=== PATIENT | male | born 1995 | race Caucasian/White ===

== ENCOUNTER 2018-01-16 13:09 | Emergency (ER) | payer MEDICAID, SELFPAY ==
[2018-01-16 13:14] VITALS: BP 130/87; PULSE 122; RESP 22; TEMP 36.2; O2SAT 99
--- NOTE | 2018-01-16 13:35 | ED.GENADUL ---
Disposition Clinical Impression: Ear foreign body Disposition: HOME Condition: Good Instructions: Ear Foreign Body (ED) Additional Instructions: Please take Tylenol and Motrin for pain. If you notice any discharge from ear, worsening ear pain, please return immediately. If you notice any worsening of your symptoms, or any new symptoms such as vomiting, diarrhea, fever, chills, shortness of breath, chest pain, numbness, weakness, or fainting , please return immediately to the emergency department for reevaluation. Please follow up with your primary care provider as soon as possible for reassessment and reevaluation. As always, it was a pleasure participating in your medical care today. Medical Decision Making - Medical Decision Making This is a 22-year-old male who presents with pain in his right ear. He was under the assumption that it was water while swimming. Physical exam demonstrates evidence of an arthropod/insect in his right ear. Insect was removed with alligator clips, and subsequently flew away in the room. The patient had complete resolution of his symptoms after removal. No significant trauma was noted or signs of infection in the ear. With no evidence of infection no antibiotics are indicated at this time. The patient's pain was completely resolved after removal of the insect. Patient will be discharged home. We discussed red flags first return the patient understands. I have extensively reviewed the treatment plan and discharge instructions with the patient. I have addressed all patient concerns at this time. The patient was made aware of what symptoms to monitor for that would warrant a return to the emergency department. Discussed the plan with the patient, they demonstrate verbal understanding and agreement with our assessment and plan at this time. History of Present Illness - General Chief complaint: EarProblem Stated complaint: WATER IN EAR? Time Seen by Provider: 01/16/18 13:35 - History of Present Illness Initial comments: This is a 22-year-old male who presents with right ear pain he states that he was swimming yesterday when he noticed sudden pain in his right ear. He has been trying to flush it with water but has had no improvement. Feels like there is fluid inside of his ear. Nothing makes it better or worse. He denies any headache vision changes trauma numbness tingling or weakness. He denies any IV or illicit drug use. He denies any previous medical problems. He denies any previous surgeries. He has no other complaints at this time. - Related Data Diazepam [Valium] 5 mg PO PRN 10/03/16 Ibuprofen 800 mg PO Q8H PRN #15 tablet 04/26/17 Lisdexamfetamine [Vyvanse] 1 cap PO DAILY 30 Days #30 cap 01/16/18 Allergies Allergy/AdvReac Type Severity Reaction Status Date / Time Phenothiazines Allergy Severe Anaphylaxsi Unverified 01/16/18 13:17 s NEUROLEPTAL Allergy Severe ANAPHYLAXIS Uncoded 01/16/18 13:17 eggplant Allergy Mild Skin Rash Uncoded 01/16/18 13:17 Review of Systems Other: 10 point review of systems was performed, pertinent positives and negatives are noted in the history of present illness. Past Medical History - Past Medical History Medical history: no medical history Surgical history: no surgical history - Social History Alcohol use: none Drug use: marijuana General Exam - Other Other exam information: 1.Const: Well-nourished, Well-developed, appearing stated age 2.Eyes: PERRL, no conjunctival injection, and symmetrical lids. 3.ENT: Atraumatic external nose and ears. Moist MM. Neck: Symmetric, trachea midline, No thyromegaly. Patient's right ear demonstrates evidence of an insect/arthropod in the right ear. Does appear to be alive and moving at this time. No evidence of erythema, otitis media, effusion, or discharge. 4.CVS: +S1/S2, No murmurs or gallops. Peripheral pulses 2+ and equal in all extremities. Brisk capillary refill in all extremities. 5.RESP: Unlabored respiratory effort. Clear to auscultation bilaterally. No wheezes rales or rhonchi 6.GI: Soft, Nontender/Nondistended, No hepatosplenomegaly. No guarding or rebound. 7.MSK: Normocephalic/Atraumatic, Extremities w/o deformity or ttp No cyanosis or clubbing, Normal movement of all extremities 8.Skin: Warm, Dry. No rashes or lesions. 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 Sensation grossly intact, no focal neurologic deficits. 10.Psych: (AAO) x3. Appropriate mood and affect Course Vital Signs - 24 hr 01/16/18 13:14 Temperature 36.2 C L Pulse 122 H Respiratory 22 Rate Blood Pressure 130/87 Pulse Oximetry 99
== END 2018-01-16 13:45 | disposition home or self-care (01) ==
PROVIDERS: Emergency Provider Student in an Organized Health Care Education/Training Program; PCP Family Medicine
DX: T16.1XXA Foreign body in right ear, initial encounter (principal)
CPT/HCPCS: 69200

== ENCOUNTER 2018-04-26 11:50 | Emergency (ER) | payer MEDICAID, SELFPAY ==
[2018-04-26] VITALS (22 sets, daily range): BP systolic 108–185; BP diastolic 42–100; PULSE 69–98; RESP 11–29; TEMP 36.7; O2SAT 97–100
--- NOTE | 2018-04-26 11:52 | NUR.NOTE ---
This RN has attempted to reassure pt.
--- NOTE | 2018-04-26 12:26 | NUR.NOTE ---
PA is at the bedside.
[2018-04-26 12:55] LABS: Abs Immature Grans 0.01 k/cumm (0.0-0.09); Absolute Basophil Count 0.02 k/cumm (0.0-0.2); Absolute Lymphocyte Count 0.84 k/cumm (1.2-3.4); Absolute Monocyte Count 1.04 k/cumm (0.11-0.7); Absolute Neutrophil Count 8.39 k/cumm (1.2-6.7); Basophils % 0.2; HCT 44.8 % (40.0-50.0); HGB 15.3 g/dL (13.5-17.5); Immature Grans % 0.1; Lymphocytes % 8.2; Mean Corp. HGB Concentration 34.2 g/dL (32.0-36.0); Mean Corpuscular Hemoglobin 29.4 pg (27.0-33.0); Mean Platelet Volume 9.8 fL (8.0-11.0); Monocytes % 10.1; Neutrophils % 81.4; Platelet Count 206 x1000/uL (130-400); RBC 5.21 m/cumm (4.50-6.00); RBC Distribution Width 13.4 % (11.8-14.1)
[2018-04-26 13:03] LABS: Mono Screening Negative (Negative)
[2018-04-26 13:13] LABS: Bilirubin Negative (Negative); Blood Negative (Negative); Clarity Clear; Glucose Negative (Negative); Ketones 80 mg/dL (Negative); Leukocyte Esterase Negative (Negative); Nitrite Negative (Negative); Urobilinogen 0.2 EU/dL (Up TO 0.2)
[2018-04-26 13:17] LABS: ALT 68 U/L (12-78); AST 26 U/L (15-37); Albumin 3.8 g/dL (3.4-5.0); Alkaline Phosphatase 94 U/L (46-116); Anion Gap 14.8 mmol/L (3-11); BUN 11 mg/dL (7-18); Bilirubin, Total 0.8 mg/dL (0.2-1.0); CO2 22.2 mmol/L (21.0-32.0); CREATININE 0.92 mg/dL (0.70-1.30); Calcium 9.7 mg/dL (8.5-10.1); Chloride 98 mmol/L (98-107); Glucose 110 mg/dL (70-100); Sodium 135 mmol/L (136-145); Total Protein 7.8 g/dL (6.4-8.2)
[2018-04-26 13:29] LABS: ETHANOL BLOOD < 3.0 mg/dL (<3); Potassium 2.9 mmol/L (3.5-5.1)
[2018-04-26] MEDS: Potassium Chloride 20 MEQ TABCR 40 MEQ PO (13:48)
[2018-04-26] MEDS: POTASSIUM CHLORIDE 10 MEQ/100 ML BAG 100 MEQ IVPB (13:49)
--- NOTE | 2018-04-26 13:55 | NUR.NOTE ---
Pt. is much more calm and relaxed, VSS, potassium and IVF infusing as ordered.
--- NOTE | 2018-04-26 14:12 | ED.GENADUL_ITS ---
Discharge Plan Disposition Patient Disposition: HOME Condition: Improving Discharge Details Chief Complaint: GenMedical Clinical Impression: Viral syndrome, Hypokalemia, Dysuria Reason For Visit: [facility]BR[facility] Primary Care Provider: Zenon Farrell ED Provider: Jian Ramos Home Meds and New Rx's Prescriptions: Continue diazepam [Valium] 5 MG tablet 5 mg PO PRN RF: 0 lisdexamfetamine [Vyvanse] 70 MG capsule 1 cap PO DAILY 30 Days Qty: 30 RF: 0 ibuprofen 800 MG tablet 800 mg PO Q8H PRN (Reason: Pain) Qty: 15 RF: 0 Discharge Instructions Instructions: Hypokalemia (ED), Viral Syndrome (ED), Dysuria (ED) Additional Instructions: Return for any new or worsening symptoms. Otherwise eat a diet high in potassium and eat a balanced diet. get plenty of rest and follow up with pcp as needed for reassessment. Referrals: Zenon Farrell [Primary Care Provider] - (as needed for reassessment) Discharge Data Discharge Date/Time-TO BE ENTERED AT DEPARTURE: 04/26/18 16:25 Medical Decision Making Patient presenting the emergency department for chief complaint of fever chills , body aches, sore throat, nasal congestion, and cold symptoms for the past 4-5 days. Patient states he is not getting better and today started having some muscle spasms. Patient states that he does not have much food to eat has not been eating well over the last couple days. Physical exam does show some tonsillary erythema otherwise no other acute findings are noted. Patient does state that he slept with an individual and is worried about sexually transmitted disease as he has intermittent burning at the end of urination but this comes and goes. Patient denies any current discharge or penile pain. Plan to check labs and urinalysis but suspect more viral etiology of illness. Plan to give IV fluids. Patient does appear very anxious the patient also given some Ativan. After review of results that show negative urine but pending GC chlamydia that I do not feel needs to be treated at this time given no abnormalities on plain urine and patient stating continued symptoms I feel that waiting to treat for possible STD until GC urine results are back is appropriate. Patient was agreeable to this plan and given intermittent's for a while and no known positive partners he understands we will contact him for any positive results. Review of other labs does show hypokalemia otherwise nondiagnostic labs with no severe leukocytosis. Feel that the patient's findings are suggestive of his stated poor nutrition and viral symptoms. Patient given 10 mill equivalent IV potassium given potassium of 2.9. Patient was able to tolerate this appropriate so patient given 40 mg p.o. potassium and food. Patient was able to tolerate that does state improvement of overall symptoms. I feel that patient is able to be safely discharged to follow-up with primary care as needed or to return for any new or significant worsening of symptoms. Patient again states understand that we will contact him for any positive results and treat accordingly I do not think this is related at this time. Patient was encouraged to eat appropriate nutritional intake and foods high in potassium. After discussion of diagnosis and plan of care patient is no further needs, questions, or concerns and states clear understanding to return to the emergency department for any worsening symptoms. HPI General Mode of arrival: ambulatory . Date/Time Provider Initiated Documentation: 04/26/18 12:02 . Limitations to Documentation: no limitations . Information obtained by: patient and RN notes reviewed . History of Present Illness 22 year old M presents to the emergency department with the chief complaint of Body aches, described as moderate, with intensity rated at 3. Quality is described as aching, Patient started experiencing this day(s) (4) and it has been constant. No relieving factors improve symptom(s), No exacerbating factors reported . Patient did receive the following treatments prior to arrival, none Related Data Home Medications Medication Instructions Recorded Confirmed diazepam [Valium] 5 mg PO PRN 10/03/16 01/16/18 ibuprofen 800 mg PO Q8H PRN #15 tablet 04/26/17 01/16/18 lisdexamfetamine [Vyvanse] 1 cap PO DAILY 30 Days #30 cap 01/16/18 Previous Rx's Medication Instructions Recorded ibuprofen 800 mg PO Q8H PRN #15 tablet 04/26/17 Allergies Allergy/AdvReac Type Severity Reaction Status Date / Time Phenothiazines Allergy Severe Anaphylaxsi Unverified 01/16/18 13:17 s NEUROLEPTAL Allergy Severe ANAPHYLAXIS Uncoded 01/16/18 13:17 eggplant Allergy Mild Skin Rash Uncoded 01/16/18 13:17 General Stated Complaint: GenMedical JOSE DE JESUS: 4 Review of Systems Constitutional Reports chills, Reports fever(s), Reports headache(s) and Reports malaise Eyes Denies change in vision and Denies eye discharge ENT Reports as per HPI, Denies otalgia, Reports headache(s), Reports nasal congestion, Reports sinus pressure and Reports sore throat Cardiovascular Denies chest pain and Denies syncope Respiratory Denies change in phlegm color and Reports cough Gastrointestinal Reports nausea and Denies vomiting Musculoskeletal Reports myalgias, Denies arthralgias and Denies joint swelling Neurologic Denies syncope and Reports headache(s) PFSH Family History Other Attention deficit disorder (ADD) Essential hypertension Heart disease Mental disorder Neoplasm Social History Smoking/Tobacco Use Status: Current-Occasional Surgical History Appendectomy Exam Const General: cooperative, no acute distress, anxious and not diaphoretic Orientation: alert and awake HENMT Head: normal to inspection, normocephalic and atraumatic Ears: hearing grossly normal bilaterally and TM's normal bilaterally General nose exam: external nose normal Face and sinus: normal facial exam and sinuses nontender Mouth: oral mucosae normal, no drooling, no muffled voice and no trismus Throat: tonsils normal and posterior oropharynx abnormal erythema and exudates Neck Neck: normal visual inspection, full ROM, no lymphadenopathy, no meningeal signs , trachea midline and supple Resp Effort & Inspection: normal respiratory effort and able to speak in complete sentences Auscultation: clear to auscultation bilaterally Cardio Rate: regular rate Rhythm: regular rhythm Heart Sounds: S1 normal, S2 normal, normal S1 and S2, no click, no gallops, no murmurs and no rubs GI Inspection: normal to inspection Palpation: no hepatosplenomegaly, not firm, no guarding, no hepatomegaly, no hernias, no masses, not rigid and nontender Auscultation: normal bowel sounds Back/Spine/Pelvis Back: no CVA tenderness Skin General skin exam: no rashes or lesions noted and dry skin (warm) Neuro General: alert, awake, oriented x3, gait normal and moves all extremities Cognition: normal cognition Speech: speech normal Course Vital Signs Temperature 36.7 C 04/26/18 11:45 Pulse 95 H 04/26/18 11:45 Respiratory Rate 24 04/26/18 11:45 Blood Pressure 185/100 H 04/26/18 11:45 Pulse Oximetry 100 04/26/18 11:45 Temperature 36.7 C 04/26/18 11:45 Temperature Source Temporal Artery Scan 04/26/18 11:45 Pulse 92 H 04/26/18 13:57 Pulse 78 04/26/18 13:50 Respiratory Rate 19 04/26/18 13:50 Respiratory Effort 04/26/18 12:23 Respiratory Depth Normal 04/26/18 12:23 Respiratory Pattern Normal 04/26/18 12:23 Blood Pressure 124/42 L 04/26/18 13:57 Blood Pressure Position Supine 04/26/18 11:45 Pulse Oximetry 98 04/26/18 13:57 Oxygen Delivery Method Room Air 04/26/18 13:57 Oxygen Flow Rate 0 04/26/18 13:57 Pain Level 0 04/26/18 11:45 Lab/Test Results Lab/Test Results: 04/26/18 13:21 Pharynx Streptococcus Screen (PAMELA) - Pending Laboratory Tests Range/Units 04/26/18 04/26/18 04/26/18 12:45 12:45 12:45 WBC (4.4-10.8) k/cumm 10.30 RBC (4.50-6.00) m/cumm 5.21 Hgb (13.5-17.5) g/dL 15.3 Hct (40.0-50.0) % 44.8 MCV (80-95) fL 86.0 MCH (27.0-33.0) pg 29.4 MCHC (32.0-36.0) g/dL 34.2 RDW (11.8-14.1) % 13.4 Plt Count (130-400) x1000/uL 206 MPV (8.0-11.0) fL 9.8 Immature Gran % 0.1 Neutrophils % 81.4 Lymphocytes % 8.2 Monocytes % 10.1 Eosinophils % 0.0 Basophils % 0.2 Absolute Neutrophils (1.2-6.7) k/cumm 8.39 H Absolute Lymphocytes (1.2-3.4) k/cumm 0.84 L Absolute Monocytes (0.11-0.7) k/cumm 1.04 H Absolute Eosinophils (0.0-0.7) k/cumm 0.00 Absolute Basophils (0.0-0.2) k/cumm 0.02 Sodium (136-145) mmol/L 135 L Potassium (3.5-5.1) mmol/L 2.9 L* Chloride (98-107) mmol/L 98 Carbon Dioxide (21.0-32.0) mmol/L 22.2 Anion Gap (3-11) mmol/L 14.8 H BUN (7-18) mg/dL 11 Creatinine (0.70-1.30) mg/dL 0.92 Estimated GFR/1.73 m2 (mL/min/1.73m2) >= 60.00 Glucose (70-100) mg/dL 110 H Calcium (8.5-10.1) mg/dL 9.7 Total Bilirubin (0.2-1.0) mg/dL 0.8 AST (15-37) U/L 26 ALT (12-78) U/L 68 Alkaline Phosphatase (46-116) U/L 94 Total Protein (6.4-8.2) g/dL 7.8 Albumin (3.4-5.0) g/dL 3.8 Urine Color (Yellow) Urine Clarity Urine pH (5-8) Ur Specific [place] (1.005-1.025) Urine Protein (Negative) mg/dL Urine Ketones (Negative) mg/dL Urine Blood (Negative) Urine Nitrite (Negative) Urine Bilirubin (Negative) Urine Urobilinogen (Up TO 0.2) EU/dL Ur Leukocyte Esterase (Negative) Urine Glucose (Negative) mg/dL Ethyl Alcohol (<3) mg/dL < 3.0 Monoscreen (Negative) Negative Range/Units 04/26/18 12:50 WBC (4.4-10.8) k/cumm RBC (4.50-6.00) m/cumm Hgb (13.5-17.5) g/dL Hct (40.0-50.0) % MCV (80-95) fL MCH (27.0-33.0) pg MCHC (32.0-36.0) g/dL RDW (11.8-14.1) % Plt Count (130-400) x1000/uL MPV (8.0-11.0) fL Immature Gran % Neutrophils % Lymphocytes % Monocytes % Eosinophils % Basophils % Absolute Neutrophils (1.2-6.7) k/cumm Absolute Lymphocytes (1.2-3.4) k/cumm Absolute Monocytes (0.11-0.7) k/cumm Absolute Eosinophils (0.0-0.7) k/cumm Absolute Basophils (0.0-0.2) k/cumm Sodium (136-145) mmol/L Potassium (3.5-5.1) mmol/L Chloride (98-107) mmol/L Carbon Dioxide (21.0-32.0) mmol/L Anion Gap (3-11) mmol/L BUN (7-18) mg/dL Creatinine (0.70-1.30) mg/dL Estimated GFR/1.73 m2 (mL/min/1.73m2) Glucose (70-100) mg/dL Calcium (8.5-10.1) mg/dL Total Bilirubin (0.2-1.0) mg/dL AST (15-37) U/L ALT (12-78) U/L Alkaline Phosphatase (46-116) U/L Total Protein (6.4-8.2) g/dL Albumin (3.4-5.0) g/dL Urine Color (Yellow) Yellow Urine Clarity Clear Urine pH (5-8) 8.0 Ur Specific [place] (1.005-1.025) 1.010 Urine Protein (Negative) mg/dL Negative Urine Ketones (Negative) mg/dL 80 Urine Blood (Negative) Negative Urine Nitrite (Negative) Negative Urine Bilirubin (Negative) Negative Urine Urobilinogen (Up TO 0.2) EU/dL 0.2 Ur Leukocyte Esterase (Negative) Negative Urine Glucose (Negative) mg/dL Negative Ethyl Alcohol (<3) mg/dL Monoscreen (Negative)
[2018-04-26] MEDS: Normal Saline 1,000 ML 1000 ML IV (14:49)
--- NOTE | 2018-04-26 15:13 | NUTRITION ---
Pt. ate an entire lunch, including 2 sandwiches, tolerated well.
[2018-04-29 16:01] LABS: Chlamydia Result Negative; GC Result Negative; Specimen Description URINE
== END 2018-04-26 16:25 | disposition home or self-care (01) ==
PROVIDERS: Emergency Provider Nurse Practitioner Family; PCP Family Medicine
DX: B34.9 Viral infection, unspecified (principal); E87.6 Hypokalemia; R30.0 Dysuria
CPT/HCPCS: 36415; 80053; 87491; 87591; 87880; 96361; 96365; 96375; 99284; 80320; 81003; 85025; 86308; 87081; J3480